=== PATIENT | male | born 1975 | race Caucasian/White ===

== ENCOUNTER 2018-11-06 09:00 | Day surgery (SDC) | payer OTHER ==
[~2018-11-06] VITALS: Ht 188 cm; Wt 101.6 kg
[2018-11-06] VITALS (15 sets, daily range): BP systolic 110–134; BP diastolic 78–85; PULSE 68–78; RESP 14–17; Ht 188 cm; Wt 101.6 kg
[~2018-11-06 09:00] MED LIST: CEFAZOLIN 1 GM INJ ONE; DEXAMETHASONE 4 MG/ML 5 ML INJ ONE; FENTAnyl 50 MCG/ML VIAL ONE; GLYCOPYRROLATE 0.4 MG INJ ONE; MIDAZOLAM 1 MG/ML 2 ML INJ ONE; NEOSTIGMINE 3 MG/3 ML SYRINGE ONE; ONDANSETRON 4 MG INJ ONE; PROPOFOL 20 ML ONE; ROCURONIUM 50 MG INJ ONE; ROPIVACAINE 0.5 % 30 ML VIAL ONE
[2018-11-06] MEDS ORDERED: LACTATED RINGER'S 1,000 ML IV SCH (10:00)
--- NOTE | 2018-11-06 11:41 | PREAC ---
Date/Time of Note Date/Time of Note DATE: 11/06/18 TIME: 11:40 Anesthesia Eval and Record Evaluation Time Pre-Procedure Interview DATE: 11/06/18 TIME: 11:40 Age 43 Sex male NPO: 8 hrs Preoperative diagnosis LEFT ACHILLES TENDON TEAR Planned procedure REPAIR ACHILLES TENDON WITH POSSIBLE FLEXOR HALLUCIS LONGUS REINFORCEMENT Past Medical History Past Medical History: None Surgery & Anesthesia Issues No known issue Meds Anticoagulation: No Beta Yoan within 24 hr: No Reason Beta Yoan not given: Pt. not on B-Yoan No Active Prescriptions or Reported Meds Current Medications Lactated Ringer's 1,000 ml @ 25 mls/hr Q24H IV Last administered on 11/06/18at 10:06; Admin Dose 25 MLS/HR; Start 11/06/18 at 10:00 Meds reviewed: Yes Allergies Coded Allergies: No Known Drug Allergies (Verified Allergy, Unknown, 11/06/18) Allergies Reviewed: Yes Labs/Studies Labs Reviewed: Reviewed by anesthesiologist test: N/A Pre-procedure Exam Last vitals Vital Signs Date Temp Pulse Resp B/P (MAP) Pulse Ox O2 O2 Flow FiO2 Time Delivery Rate 11/06/18 97.6 73 16 110/79 96 Room Air 09:55 (89) Airway: Adequate mouth opening, Adequate thyromental dist Mallampati: Mallampati II Teeth: Normal Lung: Normal Heart: Normal ASA Physical Status ASA physical status: 1 Emergency: None Planned Anesthetic General/MAC: ETT Nerve block: Sciatic (left) Planned Pain Management Single shot nerve block, Parenteral pain med Pre-operative Attestations Prior to commencing anesthesia and surgery, the patient was re-evaluated, there was verification of: *The patient's identity *The results of appropriate recent lab work and preoperative vital signs *The above evaluation not changing prior to induction *Anesthetic plan, risk benefits, alternative and complications discussed with patient/family; questions answered; patient/family understands, accepts and wishes to proceed. Margarito Monte M.D. Nov 06, 2018 11:41
--- NOTE | 2018-11-06 13:06 | HPN ---
Date/Time of Note Date/Time of Note DATE: 11/06/18 TIME: 13:05 Interval H&P Admission Note Pt. seen H&P reviewed: No system changes RODRIGUEZ CORDOBA MD Nov 06, 2018 13:06
[2018-11-06] MEDS ORDERED: POLYMYXIN/BACITRACIN 1L IRRIG ONE (14:26)
[2018-11-06] MEDS ORDERED: POVIDONE IODINE 10% 28.4 GM OINT ONE (14:26)
[2018-11-06] MEDS ORDERED: ROPIVACAINE 0.5 % 30 ML VIAL ONE (14:26)
[2018-11-06] MEDS ORDERED: THROMBIN 5000 UNIT VIAL ONE (14:55)
[2018-11-06] MEDS ORDERED: CA CHLORIDE 10% 10 ML SYRINGE ONE (14:56)
[2018-11-06] MEDS ORDERED: KETOROLAC 30 MG INJ ONE (16:21)
--- NOTE | 2018-11-06 16:25 | PAC ---
Date/Time of Note Date/Time of Note DATE: 11/06/18 TIME: 16:25 Post-Anesthesia Notes Post-Anesthesia Note Last documented vital signs Vital Signs Date Temp Pulse Resp B/P (MAP) Pulse Ox O2 O2 Flow FiO2 Time Delivery Rate 11/06/18 97.6 73 16 110/79 96 Room Air 09:55 (89) Activity: WNL Respiratory function: WNL Cardiovascular function: WNL Mental status: Baseline Pain reasonably controlled: Yes Hydration appropriate: Yes Nausea/Vomiting absent: Yes Margarito Monte M.D. Nov 06, 2018 16:25
--- NOTE | 2018-11-06 16:27 | OPPN ---
Date/Time of Note Date/Time of Note DATE: 11/06/18 TIME: 16:26 Operative Report Preoperative Diagnosis Left achilles tendon chronic retracted rupture Postoperative Diagnosis Left achilles tendon chronic retracted rupture Operation/Procedure Performed Left achilles tendon chronic retracted rupture open repair and cast placement Surgeon see signature line assistant professor of communication MD Anand Anesthesia: general Estimated blood loss: minimal Transfusion Required none Specimen none Grafts/Implants none Complications none RODRIGUEZ CORDOBA MD Nov 06, 2018 16:27
[2018-11-06] MEDS ORDERED: SOD CHLORIDE 0.9% 1,000 ML IV SCH (16:28)
[2018-11-06] MEDS ORDERED: morphine 2 MG INJ IV PRN (16:30)
[2018-11-06] MEDS ORDERED: ONDANSETRON 4 MG INJ IV PRN (16:30)
[2018-11-06] MEDS ORDERED: OXYCODONE/ACETAMINOPHEN (5/325) TAB PO PRN ×2 (16:30)
--- NOTE | 2018-11-06 18:31 | OPR ---
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 POSTOPERATIVE DIAGNOSES: 1. Chronic 6-1/2-week old tear of the Achilles tendon at the musculotendinous junction with 6.5 mm o f retraction. 2. Significant adhesions and scar tissue in the entire gastroc soleus complex. 3. Significant atrophy of the proximal portion of the Achilles with extensive scarring. PROCEDURES: 1. Delayed repair of left Achilles tendon rupture. 2. Removal of all adhesions, scar tissue and fibrosis from the Achilles to free it up so we could mo bilize it for primary closure of the Achilles. 3. Augmentation of the Achilles repair with plantaris tendon. 4. Release of deep posterior compartment of the leg. 5. Insertion of PRP onto the Achilles tendon repair and use of platelet-poor plasma on the wound. 6. Short-leg cast. Extremely complex and difficult procedure because the patient tore his Achilles 6-1/2 weeks ago and b een walking on it and has a 6-1/2 cm gap. At surgery, the proximal Achilles was atrophic, was extens ively scarred to the surrounding tissues and the entire gastroc soleus complex was scarred proximally circumferentially necessitated freeing up all the adhesions, scar tissue and fibrosis around the gas troc soleus complex, necessitated mobilizing the proximal segment of the Achilles repair and then mob ilizing the distal segment of the Achilles repair so that we could get a primary repair without havin g to do an [facility] transfer. Because of this, an additional 60 minutes of time was spent (22). SURGEON: Rodriguez Lucas MD NURSING TEACHER: Ryan Michel MD ANESTHESIA: General with popliteal block. TOURNIQUET TIME: 89 minutes. DESCRIPTION OF PROCEDURE: The patient was taken to operating room and placed in supine position. Sa tisfactory popliteal block was given. Satisfactory endotracheal anesthesia was administered. A 2 gr ams of Ancef were given intravenously. Both legs were simultaneously prepped and draped in the usual manner. Attention was turned to the left Achilles. First incision was made medial to the Achilles tendon centered at the area of the repair which near the musculotendinous junction. Dissection was c arried down to subcutaneous tissue. Traction was done only with sutures on the subcutaneous tissue. No retractors were used throughout the case. There was a large gap at least 6.5 cm to the proximal distal Achilles and was very difficult to identify any viable Achilles tendon proximally. Distally, it looked little better. The tendon was debrided and was mobilized circumferentially after the parat enon had been carefully elevated and retracted. We initially had to free up the entire Achilles and gastroc soleus complex proximally with the use of elevators as well as a special elevator to go all t he way up above the calf and freed up and break up all the adhesions, scar tissue and fibrosis. The wounds were irrigated repeatedly with antibiotic solution. All hematoma was excised. A #2 FiberWire was weaved and a Krackow stitch in the proximal portion. We put tension on the proximal portion to try to stretch it down, kept freeing it up with Mccoy elevator until we could free up enough that we f elt we could do a primary repair. We did the same thing distally. It was much more difficult to mob ilize it proximally than distally. The distal tendon also had #2 FiberWire weaved with Krackow stitc h through it. We put both knees up to 90 degrees and reduced the ruptured tendon back to itself. Ap proximately 15 to 20 degrees of plantar flexion was seen in both ankles and they matched. Pictures w ere taken. The deep compartment of the posterior calf was released to facilitate paratenon closure. The foot was plantar flexed. The sutures were then tied. Excellent apposition was noted. A 3-0 PD S was used to re-appose the edges circumferentially. The patient had an intact plantaris tendon whic h was mobilized and then sewed to the Achilles tendon with 3-0 PDS with a running suture. It had pernell e laxity to it. We doubled it up right at the repair of the Achilles site to maximize healing. When we were done, the patient had a negative Tilley test. It was tight, do not plantar flex to neutra l. We felt it was important to get his Achilles primary repair so we do not have to have an [facility] foreman sfer and then eventually, we will be able to gradually carefully stretch him out. Wounds were irriga guanako with antibiotic solution. The paratenon was closed with a running 3-0 undyed Vicryl. Tourniquet was released. Bleeders were coagulated. Wounds were irrigated with antibiotic solution. Subcutane ous tissue was closed with 3-0 undyed Vicryl. Prior to complete closure, we injected PRP into the te ndon sheath over the site of the repair. Subcutaneous tissue was closed. The skin was closed with 4 -0 black nylon interrupted vertical mattress sutures. A saphenous nerve block was done with 0.5% rop ivacaine. Compression was applied as well as short-leg cast in gravity plantarflexion. Cast was the n split and draped in the recovery room. At the end of procedure, sponge and needle count was correc t. The patient tolerated procedure well. INSIGHT LEADER ORTHOPEDIC SURGEON: During the procedure, an medical assistant orthopedic surgeon was used at [facility]. The medical assistant helped in mobilizing the Achilles and stretching it, helped with tying the Ach illes. He had tied one side while I simultaneously tied the other. Without a skilled orthopedic coretta geon medical assistant, this could not be done and thus should be compensated appropriately. Dictated By: RODRIGUEZ MAURER/INEZ Conf#: [id number] DID#: [id number]
== END 2018-11-06 18:20 | disposition home or self-care (01) ==
LOC: SDS 09:00
PROVIDERS: ATTEND Orthopaedic Surgery
DX: S86.012D Strain of left Achilles tendon, subsequent encounter (principal); X58.XXXD Exposure to other specified factors, subsequent encounter; M65.872 Other synovitis and tenosynovitis, left ankle and foot
CPT/HCPCS: 27650; 27680; J0690; J1100; J1885; J2250; J2405; J2710; J2795; J3010